=== PATIENT | female | born 1965 | race Caucasian/White ===

== ENCOUNTER → 2024-05-22 | Outpatient (CLI) | payer BC, SELFPAY ==
--- NOTE | 2024-05-22 | ECC_PTH ---
PATIENT: RAMAN NICHOLSON [facility] U#:[id number] AGE/SX: 59/F ROOM: RE05/22/[address]: ANDIE Fuentes : 1965 BED: DIS: 05/22/2024 SPEC #: [id number] RECD: 05/22/24 17:06 STATUS: ARIEL PRINCELicha #: [id number] EMILIE: 05/22/24 00:[address]: Carolina Kidd NP DEPT: SURGICAL PATHOLOGY RECD BY: Elver Lam ENTERED: 05/23/24 07:15 SP TYPE: ECC OTHR DR: ANDIE Bazzi Tissues: Endocervical Procedures: Surgery Specimen Level IV HEADER OPERATION: Polypectomy PRE-OP DIAGNOSIS: Endocervical polyp TISSUE SUBMITTED: Endocervical polyp MICROSCOPIC DIAGNOSIS Endocervical polyp, polypectomy: Benign endocervical polyp. VISHAL/ 05/24/2024 MICROSCOPIC DESCRIPTION Slides are reviewed. GROSS DESCRIPTION Received is one container labeled with the patient's name and not further designated. The specimen consists of a luu-pink polyp measuring 1.5 x 0.5 x 0.3cm. The entire specimen is submitted in one cassette. 05/23/2024 TC:5 CPT:[id number]
[2024-05-30 15:09] LABS: HPV APTIMA, High Risk Negative (Negative)
== END | disposition home or self-care (01) ==
PROVIDERS: PCP Nurse Practitioner Family; Referring Provider Nurse Practitioner Women's Health; Visit Provider Nurse Practitioner Women's Health
DX: Z12.4 Encounter for screening for malignant neoplasm of cervix (principal); N84.1 Polyp of cervix uteri
CPT/HCPCS: 87624; 88175; 88305; G0145

== ENCOUNTER → 2024-07-24 | Outpatient (CLI) | payer BC, SELFPAY ==
[2024-08-01 15:52] LABS: HPV Reflexed? NOT INDICATED
== END | disposition home or self-care (01) ==
LOC: LABSPEC 14:31
PROVIDERS: Referring Provider Nurse Practitioner Women's Health; Visit Provider Nurse Practitioner Women's Health
DX: Z12.4 Encounter for screening for malignant neoplasm of cervix (principal)
CPT/HCPCS: 88175; G0145